=== PATIENT | male | born 1985 ===

== ENCOUNTER 2021-10-30 08:00 | Outpatient (CLI) | payer OTHER ==
--- NOTE | 2021-10-30 16:53 | XRAY Report ---
PROCEDURE: Clavicle RT INDICATIONS: R SHOULDER INJURY TECHNIQUE: 2 views of the clavicle were acquired. COMPARISON: None. FINDINGS: Bones: No fractures or dislocations. No suspicious bony lesions. Soft tissues: No suspicious soft tissue calcifications. IMPRESSION: No acute radiographic findings. If there is high clinical suspicion for acromioclavicular joint separ ation, weighted views could be used. Reviewed by: Yessica Louise MD on 10/30/2021 4:51 PM PDT Approved by: Yessica Louise MD on 10/30/2021 4:51 PM PDT Station ID: [id number]
--- NOTE | 2021-10-30 16:53 | XRAY Report ---
PROCEDURE: Shoulder 3 View RT INDICATIONS: R SHOULDER INJURY TECHNIQUE: 3 views of the shoulder were acquired. COMPARISON: None. FINDINGS: Bones: No fractures or dislocations. No suspicious bony lesions. Visualized ribs appear intact. Soft tissues: No suspicious soft tissue calcifications. IMPRESSION: No acute radiographic findings. If pain persists, consider repeat imaging in 5-7 days. Reviewed by: Yessica Louise MD on 10/30/2021 4:52 PM PDT Approved by: Yessica Louise MD on 10/30/2021 4:52 PM PDT Station ID: [id number]
== END 2021-10-30 23:59 | disposition home or self-care (01) ==
LOC: DI.N 08:00
PROVIDERS: ATTEND Physician Assistant Medical
DX: S49.91XA Unspecified injury of right shoulder and upper arm, initial encounter (principal)